=== PATIENT | female | born 1965 | race Caucasian/White ===

== ENCOUNTER 2023-02-24 10:15 | Emergency (ER) | payer BC | END 2023-02-24 12:43 | disposition home or self-care (01) | LOC: JD.ED 10:15 | DX: S22.31XA Fracture of one rib, right side, initial encounter for closed fracture (principal); J18.9 Pneumonia, unspecified organism; Z87.891 Personal history of nicotine dependence | CPT/HCPCS: 71111; 71111-26; 99283; 99284 ==

== ENCOUNTER 2023-04-12 06:50 | Day surgery (SDC) | payer BC ==
[~2023-04-12 06:50] MED LIST: Lactated Ringers 1,000 ML IV SCH; Sodium Chloride 0.9% 10 ML Syringe FLUSH PRN; Sodium Chloride 0.9% 10 ML Syringe FLUSH SCH
[2023-04-12] MEDS ORDERED: Lidocaine 1% 2 ML ONE (06:53)
[2023-04-12] MEDS ORDERED: Propofol 200 MG/20 ML SDV ONE (06:53)
[2023-04-12] MEDS ORDERED: fentaNYL 100 MCG/2 ML SDV ONE (06:54)
[2023-04-12] MEDS ORDERED: Midazolam 1 MG/ML 2 ML SDV ONE (06:54)
== END 2023-04-12 09:30 | disposition home or self-care (01) ==
LOC: JD.SDS 06:50
PROVIDERS: ATTEND Surgery
DX: Z12.11 Encounter for screening for malignant neoplasm of colon (principal); E80.6 Other disorders of bilirubin metabolism; E78.5 Hyperlipidemia, unspecified; F41.9 Anxiety disorder, unspecified; M85.80 Other specified disorders of bone density and structure, unspecified site; F17.200 Nicotine dependence, unspecified, uncomplicated; Z79.899 Other long term (current) drug therapy; Z98.890 Other specified postprocedural states; Z90.710 Acquired absence of both cervix and uterus; Z79.4 Long term (current) use of insulin
CPT/HCPCS: 45378; 93005; J2250; J2704; J3010; J7120; 00812; J3490